=== PATIENT | female | born 1950 | race African-American/Black ===

== ENCOUNTER 2016-08-22 16:56 | Emergency (ER) | payer MEDICARE ==
[~2016-08-22] VITALS: Ht 170.2 cm; Wt 80.0 kg
[~2016-08-22 16:56] MED LIST: CLIN150 PO; HYDR-3533 PO
[2016-08-22 16:59] VITALS: BP 192/116; PULSE 122; RESP 20; TEMP 98.7; O2SAT 94
[2016-08-22] MEDS ORDERED: SODIUM CHLOR 0.9% 1000 ML INJ 1,000 ML IV SCH (17:44)
[2016-08-22] MEDS ORDERED: RESP: ALBUTEROL 2.5 MG/IPRATROPIUM 0.5 MG NEB (SCH) INH ONE (17:45)
--- NOTE | 2016-08-22 17:51 | PD ---
HPI Chief Complaint: cough, abdominal pain Time Seen by Provider: 17:35 Travel History International Travel<30 days: No Contact w/Intl Traveler<30days: No Traveled to known affect area: No History of Present Illness HPI This patient is deaf and speaks sign language. 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 66-year-old female who reports a history of asthma and diabetes presents for evaluation. Since yesterday she has had a cough, sore throat, congestion, generalized weakness, abdominal pain, increased urinary frequency, chills and myalgias. She denies any sick contacts or recent travel. Denies any diarrhea, chest pain, rash, true dysuria. She has no other complaints at this time. [facility] Past Medical History Asthma: Yes Diabetes: Yes Diminished Hearing: Yes (deaf) Endocrine: Yes Gastrointestinal Disorders: Yes (HX OF PANCREATITIS) Hypertension: Yes Implanted Vascular Access Dvce: No Respiratory: Yes (ASTHMA IN THE PAST) Pancreatitis: Yes Sleep Apnea: Yes Menopausal: Yes Past Surgical History Gynecologic Surgery: Yes (HYSTERECTOMY) Hysterectomy: Yes Other Surgery: Yes (HYSTERECTOMY) Social History Alcohol Use: No Tobacco Use: No Substance Use: No Allergies-Medications (Allergen,Severity, Reaction): Coded Allergies: No Known Allergies (Verified , 08/22/16) Reported Meds & Prescriptions Reported Meds & Active Scripts Active Levaquin (Levofloxacin) 500 Mg Tab 500 Mg PO DAILY 9 Days Reported Metformin (Metformin HCl) 500 Mg Tab 500 Mg PO DAILY With a meal Review of Systems Except as stated in HPI: all other systems reviewed are Neg Physical Exam Narrative GENERAL: This is a pleasant well-developed well-nourished female in no acute distress. Her vital signs have been reviewed. SKIN: Warm and dry. HEAD: Atraumatic. Normocephalic. EYES: Pupils equal and round. No scleral icterus. No injection or drainage. ENT: No nasal bleeding or discharge. Mucous membranes pink and moist. NECK: Trachea midline. No JVD. CARDIOVASCULAR: Regular rate and rhythm. No murmur appreciated. RESPIRATORY: No accessory muscle use. Mild wheezing the upper airways. No crackles. GASTROINTESTINAL: Abdomen soft, mild periumbilical tenderness without guarding. MUSCULOSKELETAL: No obvious deformities. No edema. NEUROLOGICAL: Awake and alert. No obvious cranial nerve deficits. Motor grossly within normal limits. Normal speech. PSYCHIATRIC: Appropriate mood and affect; insight and judgment normal. Data Data Last Documented VS Vital Signs Date Time Temp Pulse Resp B/P Pulse Ox O2 Delivery O2 Flow Rate FiO2 08/22/16 22:49 104 18 177/87 96 08/22/16 18:31 Room Air 08/22/16 16:59 98.7 Orders Electrocardiogram (08/22/16 17:44) Complete Blood Count With Diff (08/22/16 17:44) Comprehensive Metabolic Panel (08/22/16 17:44) Lactic Acid Sepsis Protocol (08/22/16 17:44) Magnesium (Mg) (08/22/16 17:44) Lipase (08/22/16 17:44) Urinalysis - C+S If Indicated (08/22/16 17:44) Influenzae A/B Antigen (08/22/16 17:44) Chest, Single Ap (08/22/16 17:44) Ct Abd/Pel W Iv Contrast(Rout) (08/22/16 17:44) Group A Rapid Strep Screen (08/22/16 17:44) Sodium Chlor 0.9% 1000 Ml Inj (Ns 1000 M (08/22/16 17:44) Albuterol-Ipratropium Neb (Duoneb Neb) (08/22/16 17:45) Ketorolac Inj (Toradol Inj) (08/22/16 18:45) Iohexol 350 Inj (Omnipaque 350 Inj) (08/22/16 19:50) Dexamethasone Inj (Decadron Inj) (08/22/16 20:15) Sodium Chlor 0.9% 1000 Ml Inj (Ns 1000 M (08/22/16 20:15) Levofloxacin 750 Mg Premix Inj (Levaquin (08/22/16 20:15) Penicillin G Benzathine Inj (Bicillin L- (08/22/16 21:30) Labs Laboratory Tests Test 08/22/16 08/22/16 18:13 19:12 White Blood Count 11.1 TH/MM3 Red Blood Count 4.32 MIL/MM3 Hemoglobin 11.9 GM/DL Hematocrit 35.9 % Mean Corpuscular Volume 83.1 FL Mean Corpuscular Hemoglobin 27.5 PG Mean Corpuscular Hemoglobin 33.1 % Concent Red Cell Distribution Width 13.9 % Platelet Count 186 TH/MM3 Mean Platelet Volume 8.1 FL Neutrophils (%) (Auto) 92.6 % Lymphocytes (%) (Auto) 3.2 % Monocytes (%) (Auto) 3.6 % Eosinophils (%) (Auto) 0.5 % Basophils (%) (Auto) 0.1 % Neutrophils # (Auto) 10.3 TH/MM3 Lymphocytes # (Auto) 0.4 TH/MM3 Monocytes # (Auto) 0.4 TH/MM3 Eosinophils # (Auto) 0.1 TH/MM3 Basophils # (Auto) 0.0 TH/MM3 CBC Comment DIFF FINAL Differential Comment Sodium Level 138 MEQ/L Potassium Level 3.7 MEQ/L Chloride Level 98 MEQ/L Carbon Dioxide Level 31.1 MEQ/L Anion Gap 9 MEQ/L Blood Urea Nitrogen 14 MG/DL Creatinine 1.07 MG/DL Estimat Glomerular Filtration 62 ML/MIN Rate Random Glucose 146 MG/DL Lactic Acid Level 1.5 mmol/L Calcium Level 9.5 MG/DL Magnesium Level 1.7 MG/DL Total Bilirubin 0.6 MG/DL Aspartate Amino Transf 17 U/L (AST/SGOT) Alanine Aminotransferase 15 U/L (ALT/SGPT) Alkaline Phosphatase 80 U/L Total Protein 8.2 GM/DL Albumin 3.8 GM/DL Lipase 121 U/L Urine Color LIGHT-YELLOW Urine Turbidity CLEAR Urine pH 6.0 Urine Specific Hardy 1.009 Urine Protein NEG mg/dL Urine Glucose (UA) 70 mg/dL Urine Ketones NEG mg/dL Urine Occult Blood NEG Urine Nitrite NEG Urine Bilirubin NEG Urine Urobilinogen LESS THAN 2.0 MG/DL Urine Leukocyte Esterase SMALL Urine WBC 4 /hpf Urine Squamous Epithelial <1 /hpf Cells Microscopic Urinalysis Comment CATH-CULT NOT IND MDM Medical Decision Making Medical Screen Exam Complete: Yes Emergency Medical Condition: Yes Medical Record Reviewed: Yes Interpretation(s) CBC WBC 11.1 with 92% neutrophils CMP creatinine 1.07, GFR 62 CT abdomen and pelvis reveals nonspecific nonobstructive bowel gas pattern with multiple loops of nondilated small bowel small air-fluid levels. Differential includes gastroenteritis or ileus. There is also patchy opacity at the right lung base which could indicate pneumonia. EKG sinus tachycardia Differential Diagnosis Influenza, pneumonia, asthma exacerbation, streptococcal pharyngitis, colitis, cystitis, pyelonephritis Narrative Course This is a 66-year-old female who is deaf who presents with 2 days of generalized weakness, cough, sore throat, periumbilical abdominal pain, increased urinary frequency and chills and myalgias. On initial examination she is afebrile but she is tachycardic with a heart rate in the 120s. She has very faint wheezing in the upper airways. She has mild periumbilical tenderness to palpation. She appears well. Given the tachycardia, plan is for lab work, blood cultures, chest x-ray, CT abdomen and pelvis, urinalysis. She 'll be given IV fluids and DuoNeb therapy. Laboratory imaging studies of interview. Positive group A strep antigen. CT the abdomen and pelvis reveals a likely pneumonia at the right lung base as well as gastroenteritis or ileus. The patient is being given Levaquin to cover for pneumonia as well as intramuscular injection of penicillin to cover for group A streptococcal pharyngitis. Upon reexamination the patient seems to feel improved however she continues to be tachycardic with a heart rate in the 110s. The patient will be given Decadron an additional liter fluid bolus. Discussed with my attending who agrees with plan of care. I discussed with the patient results of her testing as well as her tachycardia. I also discussed the CT results. She has no nausea, vomiting, diarrhea to suggest gastroenteritis. She feels well and would like to go home. I explained that she needs to get her prescription for antibiotic Levaquin filled tomorrow and I would also like her to follow up with her primary care physician in 2-3 days for recheck. Return for worsening symptoms. She is agreeable with this plan. Procedures EKG Prior to Arrival: Yes Diagnosis Primary Impression: Pneumonia Qualified Code: J18.9 - Pneumonia of right lung due to infectious organism, unspecified part of lung Additional Impressions: Streptococcal pharyngitis Tachycardia Additional Instructions: Take the antibiotic as prescribed. Stay well hydrated and well-nourished, get plenty of rest. Follow-up with primary care physician in 2-3 days for recheck. Return for any new or worsening symptoms. Med/Other Pt SpecificInfo: Prescription(s) given Scripts Levofloxacin (Levaquin)500 Mg [id number] Mg PO DAILY 9 Days Ref 0 Prov:Josephine Vega MD 08/22/16 Disposition: 01 DISCHARGE HOME Condition: Stable Choco Serrano Aug 22, 2016 17:51
[2016-08-22] MEDS ORDERED: METF500T PO (17:57)
[2016-08-22 18:31] VITALS: BP 156/100; PULSE 122; RESP 17; O2SAT 96
[2016-08-22] MEDS ORDERED: KETOROLAC TROMETHAMINE 30 MG/ML (IVP) VIAL IV PUSH ONE (18:45)
[2016-08-22 18:50] LABS: AUTOMATED NEUTROPHIL # 10.3 TH/MM3 (1.8-7.7); BASOPHIL % 0.1 % (0.0-2.0); EOSINOPHIL # 0.1 TH/MM3 (0-0.4); EOSINOPHIL % 0.5 % (0.0-4.0); HEMATOCRIT 35.9 % (35.0-46.0); HEMO FLAGS DIFF FINAL; LYMPH % 3.2 % (9.0-44.0); LYMPHOCYTE # 0.4 TH/MM3 (1.0-4.8); MEAN CELL VOLUME 83.1 FL (80.0-100.0); MEAN CORPUSCULAR HEMOGLOBIN 27.5 PG (27.0-34.0); MEAN CORPUSCULAR HGB CONC 33.1 % (32.0-36.0); MONO % 3.6 % (0.0-8.0); NEUT % 92.6 % (16.0-70.0); PLATELET COUNT 186 TH/MM3 (150-450); RED BLOOD COUNT 4.32 MIL/MM3 (4.00-5.30); RED CELL DISTRIBUTION WIDTH 13.9 % (11.6-17.2); WHITE BLOOD COUNT 11.1 TH/MM3 (4.0-11.0)
--- NOTE | 2016-08-22 19:08 | RADRPT ---
EXAM DATE/TIME: 08/22/2016 18:03 [facility] COMPARISON: No previous studies available for comparison. INDICATIONS : Cough. MEDICAL HISTORY : None. SURGICAL HISTORY : None. ENCOUNTER: Initial ACUITY: 1 day PAIN SCORE: 0/10 LOCATION: Bilateral chest FINDINGS: A single view of the chest demonstrates the lungs to be symmetrically aerated without evidence of mas s, infiltrate or effusion. The heart size appears mildly prominent with perihilar edema. Atheroscler otic changes are present in the aorta. There are multiple overlying electrocardiogram leads. There is apparent scarring at the lung bases. Osseous structures are intact with mild to moderate scoliosis. CONCLUSION: 1. Apparent scarring of the lung bases with no acute cardiopulmonary disease. 2. Mild cardiomegaly with no evidence of pulmonary edema. Josue Schwab MD on August 22, 2016 at 19:06 Board Certified Radiologist. This report was verified electronically.
[2016-08-22 19:13] LABS: ANION GAP 9 MEQ/L (5-15); AST (GOT) 17 U/L (15-37); BICARBONATE 31.1 MEQ/L (21.0-32.0); BLOOD UREA NITROGEN 14 MG/DL (7-18); CHLORIDE 98 MEQ/L (98-107); GLOMERULAR FILTRATION RATE 62 ML/MIN (>89); MAGNESIUM 1.7 MG/DL (1.5-2.5); POTASSIUM 3.7 MEQ/L (3.5-5.1); SODIUM (NA) 138 MEQ/L (136-145)
[2016-08-22 19:16] LABS: ALKALINE PHOSPHATASE 80 U/L (45-117); ALT (GPT) 15 U/L (10-53); TOTAL BILIRUBIN ADULT 0.6 MG/DL (0.2-1.0)
[2016-08-22 19:43] LABS: BLOOD, URINE NEG (NEG); GLUCOSE,URINE 70 mg/dL (NEG); KETONE, URINE NEG (NEG); NITRITE,URINE NEG (NEG); SQUAMOUS EPITHELIAL CELL URINE <1 /hpf (0-5); URINE COLOR LIGHT-YELLOW (YELLW/STRAW)
[2016-08-22 19:46] LABS: COMMENT (UR) CATH-CULT NOT IND; CULTURE IF INDICATED CATH CULTURE NOT IND
[2016-08-22] MEDS ORDERED: IOHEXOL 350 MG/ML 10 ML VIAL (for RAD DIAG) IV ONE (19:50)
--- NOTE | 2016-08-22 20:02 | RADRPT ---
EXAM DATE/TIME: 08/22/2016 19:35 1 [facility] COMPARISON: No previous studies available for comparison. INDICATIONS : Flu like symptoms and abdominal pain. IV CONTRAST: 70 cc Omnipaque 350 (iohexol) IV ORAL CONTRAST: No oral contrast ingested. RADIATION DOSE: 9.96 CTDIvol (mGy) MEDICAL HISTORY : Pancreatitis. Hypertension. Diabetes mellitus type 2. SURGICAL HISTORY : Hysterectomy. ENCOUNTER: Initial ACUITY: 1 day PAIN SCALE: 6/10 LOCATION: abdomen TECHNIQUE: Volumetric scanning of the abdomen and pelvis was performed. Using automated exposure control and ad justment of the mA and/or kV according to patient size, radiation dose was kept as low as reasonably achievable to obtain optimal diagnostic quality images. FINDINGS: The study is degraded by mild motion artifact. LOWER LUNGS: Is patchy opacity in the right lower lobe which could indicate pneumonia. LIVER: Homogeneous density without lesion. There is no dilation of the biliary tree. The patient is status post cholecystectomy. SPLEEN: Normal size without lesion. PANCREAS: Within normal limits. KIDNEYS: Normal in size and shape. There is no mass, stone or hydronephrosis. ADRENAL GLANDS: Within normal limits. VASCULAR: There is no aortic aneurysm. BOWEL/MESENTERY: There are multiple loops of nondilated air-containing small bowel with small air-fluid levels. Gas an d stool is noted segmentally in the colon. There is no free air or fluid. ABDOMINAL WALL: Within normal limits. RETROPERITONEUM: There is no lymphadenopathy. BLADDER: No wall thickening or mass. REPRODUCTIVE: Within normal limits. INGUINAL: There is no lymphadenopathy or hernia. MUSCULOSKELETAL: Within normal limits for patient age. CONCLUSION: 1. Nonspecific, nonobstructive bowel gas pattern with multiple loops of nondilated small bowel small air-fluid levels. There is no free air or fluid. The differential diagnosis includes gastroenteritis and/or ileus. 2. Status post cholecystectomy. 3. Patchy opacity at the right lung base which could indicate pneumonia. 4. The study is degraded by mild motion artifact. Josue Schwab MD on August 22, 2016 at 19:59 Board Certified Radiologist. This report was verified electronically.
[2016-08-22] MEDS ORDERED: SODIUM CHLOR 0.9% 1000 ML INJ 1,000 ML IV ONE (20:15)
[2016-08-22] MEDS ORDERED: PENICILLIN G PROCAINE INJ 1,200,000 UNITS/2 ML SYR IM ONE (20:15)
[2016-08-22] MEDS ORDERED: DEXAMETHASONE SOD PHOS 4 MG/ML VIAL IV PUSH ONE (20:15)
[2016-08-22] MEDS ORDERED: LEVOFLOXACIN 750 MG PREMIX INJ 150 ML IV ONE (20:15)
[2016-08-22] MEDS ORDERED: LEVA500T PO (20:47)
[2016-08-22] MEDS ORDERED: PENICILLIN G BENZATHINE 1,200,000 UNITS/2 ML SYRINGE IM ONE (21:30)
--- NOTE | 2016-08-22 21:52 | EKG ---
Date Performed: 08/22/2016 Time Performed: 17:28:19 PTAGE: 66 years EKG: BASELINE ARTIFACT PRESENT. Probable sinus tachycardia LEFT VENTRICULAR HYPERTROPHY AND ST-T CHANGE ABNORMAL ECG COMPARED TO PRIOR ELECTROCARDIOGRAM, Rate has increased. PREVIOUS TRACING : 06/06/2008 11.04 DOCTOR: Antoine Neri Interpretating Date/Time 08/22/2016 21:50:34
[2016-08-22 22:49] VITALS: BP 177/87
== END 2016-08-22 22:53 | disposition home or self-care (01) ==
LOC: NEPA 16:56
DX: J18.9 Pneumonia, unspecified organism (principal); J02.0 Streptococcal pharyngitis; R00.0 Tachycardia, unspecified; R10.9 Unspecified abdominal pain; R35.0 Frequency of micturition; M79.1 Myalgia; R94.31 Abnormal electrocardiogram [ECG] [EKG]; E11.9 Type 2 diabetes mellitus without complications; H91.3 Deaf nonspeaking, not elsewhere classified; I10 Essential (primary) hypertension; Z79.84 Long term (current) use of oral hypoglycemic drugs; Z87.09 Personal history of other diseases of the respiratory system; Z87.19 Personal history of other diseases of the digestive system
CPT/HCPCS: 71010; 74177; 80053; 81001; 83605; 83690; 83735; 85025; 87804; 87880; 93005; 94664; 96372; 96374; 96375; 99284; J0561; J1100; J1885; J1956; J7030; Q9967

== ENCOUNTER 2017-03-30 13:46 | Emergency (ER) | payer MEDICARE ==
[~2017-03-30] VITALS: Ht 175.3 cm; Wt 67.0 kg
[~2017-03-30 13:46] MED LIST changes: -CLIN150 PO; -HYDR-3533 PO; +LEVA500T PO; +METF500T PO
[2017-03-30 13:50] VITALS: BP 163/95; PULSE 96; RESP 15; TEMP 98.4; O2SAT 96
== END 2017-03-30 16:19 | disposition left against medical advice (07) ==
LOC: NED 13:46
DX: Z53.21 Procedure and treatment not carried out due to patient leaving prior to being seen by health care provider (principal)
CPT/HCPCS: 99281